=== PATIENT | female | born 1970 | race Caucasian/White ===

== ENCOUNTER 2020-04-20 22:55 | Emergency (ER) | payer BC, OTHER ==
[~2020-04-20] VITALS: Ht 172.7 cm; Wt 65.8 kg
[~2020-04-20 22:55] MED LIST: AZITHROMYCIN250 MG ORAL; BACITRACIN15 GM TOPIC; BACTRIM-DS1 EA ORAL; CEPHALEXIN500 MG ORAL; HYDROCODONE CO120 M1 PO; IBUPROFEN600 MG ORAL; IBUPROFEN600 MG PO; LEXAPRO20 MG ORAL; NKM; PHENAZOPYRIDIN200 MG ORAL; SULFAMETHOXAZO480 ML ORAL; VICODIN 5-5001 EACH PO
[2020-04-20] MEDS ORDERED: Morphine Sulfate 2mg/ml Inj(IV/IM USE ONLY) IVP ONE (23:30)
--- NOTE | 2020-04-20 23:30 | NUR ---
Ptient brought in through ambuilatory triage c/o of falling, patient had been drinking, patient admits to 1 bottle of wine, patient is AOx4, ambulatory, hematoma to the left side of the forehead
--- NOTE | 2020-04-20 23:30 | NUR ---
Blood specimen and urine sent to lab, pt will go to CT
[2020-04-20 23:52] LABS: BASOPHILS % (AUTO) 0.9 % (0.0-2.0); EOSINOPHILS % (AUTO) 0.7 % (0.0-3.0); HEMATOCRIT 41.3 % (37.0-47.0); HEMOGLOBIN 14.4 G/DL (12.0-16.0); LYMPHOCYTES % (AUTO) 26.2 % (20.0-45.0); MEAN CORPUSCULAR VOLUME 97 FL (80-99); MONOCYTES % (AUTO) 6.9 % (1.0-10.0); NEUTROPHILS % (AUTO) 65.3 % (45.0-75.0); PLATELET COUNT 277 K/UL (150-450); RED BLOOD COUNT 4.26 M/UL (4.20-5.40); RED CELL DISTRIBUTION WIDTH 11.8 % (11.6-14.8); WHITE BLOOD COUNT 8.6 K/UL (4.8-10.8)
[2020-04-21 00:03] LABS: INR 0.9 (0.9-1.1)
[2020-04-21 00:04] LABS: ANION GAP 11 mmol/L (5-15); BLOOD UREA NITROGEN 14 mg/dL (7-18); CALCIUM 8.9 MG/DL (8.5-10.1); CARBON DIOXIDE 25 MMOL/L (21-32); CHLORIDE 104 MMOL/L (98-107); CREATININE 0.6 MG/DL (0.55-1.30); POTASSIUM 3.7 MMOL/L (3.5-5.1); SODIUM 140 MMOL/L (136-145)
[2020-04-21 00:08] LABS: ALANINE AMINOTRANSFERASE 19 U/L (12-78); ALBUMIN 4.5 G/DL (3.4-5.0); ALBUMIN/GLOBULIN RATIO 1.4 (1.0-2.7); ALKALINE PHOSPHATASE 37 U/L (46-116); ASPARTATE AMINO TRANSFERASE 20 U/L (15-37); BILIRUBIN,TOTAL 0.4 MG/DL (0.2-1.0)
--- NOTE | 2020-04-21 00:24 | Diagnostic Imaging Report ---
EXAM: CT Head Without Intravenous Contrast CLINICAL HISTORY: FALL TECHNIQUE: Axial computed tomography images of the head/brain without intravenous contrast. CTDI is 53.4 mGy and DLP is 1098 mGy-cm. One or more of the following dose reduction techniques were used: automated exposure control, adjustment of the mA and/or kV according to patient size, use of iterative reconstruction technique. COMPARISON: No relevant prior studies available. FINDINGS: Brain: No acute infarct, hemorrhage, mass or edema. Ventricles: Unremarkable. No ventriculomegaly. Bones/joints: No acute calvarial abnormality. Soft tissues: Left frontal scalp soft tissue hematoma. Sinuses: Mild mucosal thickening in the paranasal sinuses. Mastoid air cells: Unremarkable as visualized. IMPRESSION: 1. No acute infarct, hemorrhage, mass or edema. 2. Left frontal scalp soft tissue hematoma.
--- NOTE | 2020-04-21 00:26 | Emergency Room Report ---
History of Present Illness General Chief Complaint: Multiple Trauma/Fall Source: Patient Present Illness HPI Patient is a 49-year-old female with no prior medical history who presents with chief complaint of mechanical trip and fall today at 10 PM. Patient is accompanied by her . She denies any loss of consciousness, vision changes, prodromal symptoms of syncope, chest pain, back pain, neck pain, hip pain, melena, hematochezia, shortness of breath, chest pain or difficulty walking. Patient states that she drank a whole bottle of wine today prior to arrival. Her witnessed the fall and there was no visualized seizure, loss of consciousness, post-ictal state or difficulty with ambulation. The patient's symptoms were gradual onset, severity was moderate, duration since 2 hours. Quality: Aching Past medical history: Denies Past surgical history: Denies Smoking: Denies Alcohol use: ++ Drug use: Denies Review of systems: CONST: No fevers or chills, No night sweats PULMONARY: No productive cough, No shortness of breath CARDIAC: No chest pain, No palpitations GI: No vomiting, No diarrhea , No melena_or_BRBPR : No dysuria, No hematuria, No discharge NEURO: No new_focal_weakness_or_numbness, No confusion, No vision changes 14 point Review of Systems is otherwise negative except per HPI Physical Exam: GENERAL: Awake_alert_ nontoxic, no acute distress Spo2 97% on RA -normal EYES: Extraocular muscles are intact. Conjunctivae clear. Lids without swelling. No nystagmus. No entrapment.++ Left frontal scalp hematoma. No scalp laceration. ENT: External nose and ear normal_in_appearance. Oropharynx clear. Head_atraumatic, Moist_oral_mucosa. No oropharyngeal trauma. No nasal septal hematoma. No midface instability. No hyphema. NECK: No JVD. No meningismus. No thyromegaly. Supple. Trachea midline. No midline cervical, thoracic, lumbar spinal step-off or deformity. RESP: Normal respiratory effort. Symmetric rise. No stridor. Clear_to_auscultation_No_rales_No_wheezes. No chest wall crepitus CARDIAC: Regular rate and regular rhytm. No_significant pedal edema. ABDOMEN: Soft. Nondistended. Nontender_No_rebound_or_guarding. No pulsatile mass. No pelvic instability. No flank pain. MSK: Normal muscle tone, without rigidity. Extremities without asymmetric deformity or swelling. SKIN: Warm and dry. No visible cyanosis or pallor NEUROLOGIC: Alert, oriented x3. Motor_and_sensation_grossly_intact. No truncal ataxia. Gait_normal Psych: Normal mood and affect, normal judgment and insight - COORDINATION OF CARE Case was discussed with: Patient Any labs and imaging that were ordered were interpreted as part of the medical decision making: Medical Decision Making/Plan: Differential diagnosis includes closed head injury, scalp contusion, neck muscle spasm / strain, vs less likely skull fracture, intracranial bleeding, vertebral fracture, spinal cord compression / injury, among others. Pt is grossly intoxicated with alcohol (serum EtOH level is elevated), therefore CT scans of the face, head, and neck were immediately obtained and showed no evidence of any emergent findings. She was noted to have a left frontal scalp soft tissue hematoma but no other findings. No focal neurologic deficits, ataxia, dysmetria, nystagmus or ocular abnormalities. There was no evidence of any wounds that required repair Labs were overall reassuring. Serum EtOH was elevated, but was at bed side and stated that he was comfortable observing patient at home, stating that she was more or less clinically sober. The patient has no significant tremors or tachycardia, and their presentation seems most consistent with alcohol intoxication without withdrawal. ED intervention included morphine for pain control. The patient will be observed in the emergency department with serial neurologic exams for improvement in their mental status. - REASSESSMENT - After serial neurologic exams in the emergency department, the patients mental status significantly improved. The patient was able to follow commands and is clinically sober. They have no focal neurologic deficits and were able to ambulate with a steady gait without assistance. Patient is stable for discharge home and follow up with their regular doctor in 1-2 days. Advised alcohol cessation. Advised her not to take [place] while drinking alcohol. Advised not to drink alcohol on an empty stomach or drink and drive. Pertinent results reviewed with the patient. I educated the patient on the current treatment plan including the risks, benefits, and alternatives. I also discussed the extent and limitations of the current evaluation. The patient expressed understanding and agreement with plan. I recommended PMD follow-up within 1-2 days. Also advised that the patient return to the Emergency Department as soon as possible if they experience any new, persistent, or worsening symptoms. Patient will be discharged with [place]. She was advised not to take it tonight while she still has alcohol in her system. With her and the patient verbalized their understanding of this. Allergies: Coded Allergies: SULFA (SULFONAMIDE ANTIBIOTICS) (Verified Allergy, Unknown, 04/20/20) Uncoded Allergies: SULFA (Allergy, Unknown, 04/20/20) COVID-19 Screening Contact w/high risk pt: No Experienced COVID-19 symptoms?: No COVID-19 Testing performed [employer] ATTENDANT: No Patient History Last Menstrual Period: 4 days ago Now: No Nursing Documentation-PMH Hx Hypertension: Yes Physical Exam Vital Signs Date Time Temp Pulse Resp B/P (MAP) Pulse Ox O2 Delivery O2 Flow Rate FiO2 04/20/20 23:03 97.9 76 19 136/86 (103) 97 Room Air Sp02 EP Interpretation: reviewed, normal Medical Decision Making Diagnostic Impression: Primary Impression: Closed head injury Additional Impressions: Scalp hematoma Headache Alcohol intoxication Concussion EKG Diagnostic Results PA Scribe Text 12-lead EKG (interpreted by me) Time: 2325 Indication: Rhythm analysis Tracing visualized and Interpreted by me. Rhythm: Normal sinus rhythm Rate: 73 bpm QTc: 453 Morphology: No_significant_ST_elevations_or_depressions, No STEMI Impression: Normal sinus rhythm, left atrial enlargement CT/MRI/US Diagnostic Results CT/MRI/US Diagnostic Results : Impression CT Head Without Intravenous Contrast FINDINGS: Brain: No acute infarct, hemorrhage, mass or edema. Ventricles: Unremarkable. No ventriculomegaly. Bones/joints: No acute calvarial abnormality. Soft tissues: Left frontal scalp soft tissue hematoma. Sinuses: Mild mucosal thickening in the paranasal sinuses. Mastoid air cells: Unremarkable as visualized. IMPRESSION: 1. No acute infarct, hemorrhage, mass or edema. 2. Left frontal scalp soft tissue hematoma. Dictated By: Kee Lockwood MD CT Maxillofacial Without Intravenous Contrast FINDINGS: Bones/joints: Post surgical changes within the right anterior wall of the right maxillary antrum and bilateral mandible, likely remote injury. No acute fracture. Soft tissues: Left frontal scalp soft tissue hematoma likely posttraumatic. Orbits: Unremarkable. Sinuses: Minimal mucosal thickening in the paranasal sinuses. IMPRESSION: Left frontal scalp soft tissue hematoma likely posttraumatic. No acute fracture. Dictated By: Kee Lockwood MD CT Cervical Spine Without Intravenous Contrast COMPARISON: No relevant prior studies available. FINDINGS: Vertebrae: No acute fracture or traumatic malalignment. Discs/spinal canal/neural foramina: Degenerative changes. Soft tissues: Unremarkable. Lung apices: Biapical pleural parenchymal scarring. IMPRESSION: No acute fracture or traumatic malalignment. Dictated By: Kee Lockwood MD Reevaluation Time: 01:05 Last Vital Signs Date Time Temp Pulse Resp B/P (MAP) Pulse Ox O2 Delivery O2 Flow Rate FiO2 04/20/20 23:44 76 19 Room Air 04/20/20 23:03 97.9 136/86 (103) 97 Status: improved Disposition: HOME, SELF-CARE Admit Decision Time: 01:05 Condition: Stable Scripts Naproxen* (NAPROSYN*) 250 Mg Tablet 250 MG ORAL TID PRN for For Pain, #20 TAB 0 Refills Prov: Aida Capone D.O. 04/21/20 Naloxone HCl (Narcan) 4 Mg [place] 4 MG NS ONCE for 1 Day, #1 SPRAY Prov: Aida Capone D.O. 04/21/20 Hydrocodone/Acetaminophen 5-325* (HYDROCODONE/ACETAMINOPHEN 5-325*) 1 Each Tablet 1 TAB ORAL Q4H PRN for For Pain, #10 TAB 0 Refills Prov: Aida Capone D.O. 04/21/20 Referrals: NOT CHOSEN IPA/,REFERRING (PCP) Patient Instructions: Alcohol Intoxication, [id number], Concussion, Adult, [id number], Hematoma, [id number] Additional Instructions: Instructions for patient/nutritional services cook: Follow up with your physician in 1-2 days. Please avoid falls or reinjury as secondary head trauma can cause significant disability. Avoid alcohol. Do not drink and drive. Do not take [place] and drive or combine with alcohol as it is potentially sedating. Follow-up with your doctor sooner if your condition requires a more timely clinical reevaluation. Return to the emergency department immediately if you feel that your condition is worsening or if you have any new or concerning symptoms. Review your discharge instructions and take any prescriptions given as instructed. [facility] PROVIDES FREE OR LOW-COST HEALTH SERVICES TO PEOPLE WHO CAN SHOW PROOF THAT THEY LIVE IN [facility]. TO FIND MORE CLINICS PARTNERED WITH [facility] TO PROVIDE SERVICE, PLEASE CALL . Aida Capone D.O. Apr 21, 2020 00:26
--- NOTE | 2020-04-21 00:28 | Diagnostic Imaging Report ---
EXAM: CT Maxillofacial Without Intravenous Contrast CLINICAL HISTORY: PAIN TECHNIQUE: Axial computed tomography images of the face without intravenous contrast. CTDI is 15.3 mGy and DLP is 333.8 mGy-cm. One or more of the following dose reduction techniques were used: automated exposure control, adjustment of the mA and/or kV according to patient size, use of iterative reconstruction technique. COMPARISON: No relevant prior studies available. FINDINGS: Bones/joints: Post surgical changes within the right anterior wall of the right maxillary antrum and bilateral mandible, likely remote injury. No acute fracture. Soft tissues: Left frontal scalp soft tissue hematoma likely posttraumatic. Orbits: Unremarkable. Sinuses: Minimal mucosal thickening in the paranasal sinuses. IMPRESSION: Left frontal scalp soft tissue hematoma likely posttraumatic. No acute fracture.
[2020-04-21] MEDS ORDERED: Morphine Sulfate 2mg/ml Inj(IV/IM USE ONLY) IVP ONE (00:30)
--- NOTE | 2020-04-21 00:31 | Diagnostic Imaging Report ---
EXAM: CT Cervical Spine Without Intravenous Contrast CLINICAL HISTORY: FALL TECHNIQUE: Axial computed tomography images of the cervical spine without intravenous contrast. CTDI is 19.5 mGy and DLP is 510.2 mGy-cm. One or more of the following dose reduction techniques were used: automated exposure control, adjustment of the mA and/or kV according to patient size, use of iterative reconstruction technique. COMPARISON: No relevant prior studies available. FINDINGS: Vertebrae: No acute fracture or traumatic malalignment. Discs/spinal canal/neural foramina: Degenerative changes. Soft tissues: Unremarkable. Lung apices: Biapical pleural parenchymal scarring. IMPRESSION: No acute fracture or traumatic malalignment.
[2020-04-21] MEDS ORDERED: Thiamine 100mg tab ORAL ONE (00:45)
[2020-04-21 00:58] VITALS: BP 121/79
--- NOTE | 2020-04-21 01:00 | NUR ---
ER DISCHARGE NOTE: Patient is cleared to be discharged per ERMD, pt is aox4, on room air, with stable vital signs. pt was given dc and prescription instructions, pt was able to verbalize understanding, pt id band and iv site removed without complications. pt is able to ambulate with steady gait. pt took all belongings.
[2020-04-21] MEDS ORDERED: HYDROCODON-ACE1 EA15 ORAL (01:09)
[2020-04-21] MEDS ORDERED: NARCAN4 MG NS (01:09)
[2020-04-21] MEDS ORDERED: NAPROXEN250 MG ORAL (01:09)
== END 2020-04-20 23:45 | disposition home or self-care (01) ==
LOC: EMR 23:20
DX: S09.90XA Unspecified injury of head, initial encounter (principal); S00.03XA Contusion of scalp, initial encounter; F10.129 Alcohol abuse with intoxication, unspecified; R51.9 Headache, unspecified; I10 Essential (primary) hypertension; W01.0XXA Fall on same level from slipping, tripping and stumbling without subsequent striking against object, initial encounter; Y93.9 Activity, unspecified; Y92.019 Unspecified place in single-family (private) house as the place of occurrence of the external cause; Y90.8 Blood alcohol level of 240 mg/100 ml or more; Z88.2 Allergy status to sulfonamides
CPT/HCPCS: 70450; 70486; 72125; 80053; 80307; 84484; 85025; 85610; 85730; 93005; 96374; 96375; 96376; 99284; G0480; J2405; 36415; 82140; 86850; 86900; 86901